=== PATIENT | male | born 1990 | race Hispanic/Latino ===

== ENCOUNTER 2024-03-13 18:46 | Emergency (ER) | payer OTHER | END 2024-03-13 20:29 | disposition home or self-care (01) | LOC: CSHERS 18:46 | DX: S09.90XA Unspecified injury of head, initial encounter (principal); W22.8XXA Striking against or struck by other objects, initial encounter; Y93.39 Activity, other involving climbing, rappelling and jumping off; Y92.89 Other specified places as the place of occurrence of the external cause | CPT/HCPCS: 70450; 72125 ==